=== PATIENT | female | born 1970 | race Caucasian/White ===

== ENCOUNTER 2021-09-03 10:26 | Day surgery (SDC) | payer MEDICARE, MEDICAID ==
[~2021-09-03] VITALS: Ht 167.6 cm; Wt 102.2 kg
[~2021-09-03 10:26] MED LIST: ALBU18HF2 INH; ATI1T PO; CALC-1200 PO; COL100C PO; IBUP-1984 PO; IVER3TAB2 PO; LEVE250T PO; LIDO700A47 TP; NICO-668 MM; PANT40TA54 PO; PROP60TA19 PO; QUET200T31 PO; TOP25T PO; TRAZ150T78 PO; VENL150T3 PO
[2021-09-03 10:42] VITALS: BP 160/107
[2021-09-03] MEDS ORDERED: PROPANOLOL (10:49)
[2021-09-03] MEDS ORDERED: BACL20TA PO (10:50)
[2021-09-03] MEDS ORDERED: QUET-1 PO (10:50)
[2021-09-03] MEDS ORDERED: IBUP-1986 PO (10:51)
[2021-09-03] MEDS ORDERED: GABA-530 PO (10:52)
[2021-09-03] MEDS ORDERED: QUET300T20 PO (10:53)
[2021-09-03] MEDS ORDERED: MIDAZolam 1 MG/ML 5ML VIAL ONE (10:55)
[2021-09-03] MEDS ORDERED: fentaNYL/PF 50MCG/1 ML 2ML syringe ONE (10:55)
[2021-09-03] MEDS ORDERED: HYDR-3686 PO (10:56)
[2021-09-03] MEDS ORDERED: LACT10SO3 PO (10:57)
[2021-09-03 11:58] VITALS: BP 141/49
[2021-09-03 12:08] VITALS: BP 139/93
[2021-09-03 12:18] VITALS: BP 138/99
== END 2021-09-03 12:40 | disposition home or self-care (01) ==
LOC: GI LAB 10:26
PROVIDERS: ATTEND Internal Medicine Gastroenterology
DX: Z12.11 Encounter for screening for malignant neoplasm of colon (principal); K64.8 Other hemorrhoids; Z72.89 Other problems related to lifestyle; F17.210 Nicotine dependence, cigarettes, uncomplicated; Z83.71 Family history of colonic polyps
CPT/HCPCS: 45380; 99153; G0500; J2250; J3010; J7040; Z7512; 88305; 88313; 99152; A4620

== ENCOUNTER 2022-11-21 11:22 | Emergency (ER) | payer MEDICARE, MEDICAID ==
[~2022-11-21] VITALS: Ht 167.6 cm; Wt 104.5 kg
[~2022-11-21 11:22] MED LIST changes: -ATI1T PO; +BACL20TA PO; -CALC-1200 PO; -COL100C PO; +GABA-530 PO; +HYDR-3686 PO; -IBUP-1984 PO; +IBUP-1986 PO; -IVER3TAB2 PO; +LACT10SO3 PO; -LEVE250T PO; -LIDO700A47 TP; -NICO-668 MM; -PROP60TA19 PO; +PROPANOLOL; +QUET-1 PO; -QUET200T31 PO; +QUET300T20 PO; -TOP25T PO; -TRAZ150T78 PO; -VENL150T3 PO
[2022-11-21 11:33] VITALS: BP 146/108
[2022-11-21] MEDS ORDERED: ketorolac trometh inj. 60 MG/2 ML VIAL IM ONE (12:00)
[2022-11-21] MEDS ORDERED: metoclopramide 10mg tablet PO ONE (12:00)
[2022-11-21] MEDS ORDERED: diphenhydrAMINE 25mg capsule PO ONE (12:00)
== END 2022-11-21 12:31 | disposition home or self-care (01) ==
LOC: ER 11:23
DX: G43.909 Migraine, unspecified, not intractable, without status migrainosus (principal); B34.9 Viral infection, unspecified; I10 Essential (primary) hypertension; F17.200 Nicotine dependence, unspecified, uncomplicated; Z91.040 Latex allergy status; Z88.8 Allergy status to other drugs, medicaments and biological substances; Z56.0 Unemployment, unspecified; Z59.00 Homelessness unspecified
CPT/HCPCS: 96372; 99283; J1885; Q0163

== ENCOUNTER 2022-11-29 15:29 | Emergency (ER) | payer MEDICARE, MEDICAID ==
[~2022-11-29] VITALS: Ht 167.6 cm; Wt 104.5 kg
[2022-11-29 16:03] VITALS: BP 165/110
[2022-11-29] MEDS ORDERED: ketorolac trometh. 30mg/ml inj. IM ONE (18:40)
[2022-11-29] MEDS ORDERED: amox tr/potassium clavulanate 875/125mg TAB PO ONE (19:10)
[2022-11-29] MEDS ORDERED: AMOX-117 PO (19:13)
== END 2022-11-29 19:42 | disposition home or self-care (01) ==
LOC: ER 15:30
DX: J32.9 Chronic sinusitis, unspecified (principal)
CPT/HCPCS: 70450; 70486; 96372; 99285; J1885

== ENCOUNTER 2023-11-03 11:28 | Emergency (ER) | payer MEDICARE, MEDICAID ==
[~2023-11-03] VITALS: Ht 172.7 cm; Wt 101.8 kg
[2023-11-03 11:39] VITALS: TEMP 97.8
[2023-11-03 12:45] VITALS: BP 151/98; PULSE 81; O2SAT 94
[2023-11-03] MEDS ORDERED: FLUT16SP2 BOTHNARES (12:51)
[2023-11-03] MEDS ORDERED: AMOX-117 PO (12:51)
[2023-11-03] MEDS ORDERED: PSEU120T56 PO (12:51)
[2023-11-03] MEDS: ketorolac tromethamine 15mg/ml inj. IM ONE (13:04)
[2023-11-03 13:15] VITALS: RESP 12
== END 2023-11-03 13:20 | disposition home or self-care (01) ==
LOC: ER 11:30
DX: J32.9 Chronic sinusitis, unspecified (principal); G43.909 Migraine, unspecified, not intractable, without status migrainosus; I10 Essential (primary) hypertension; Z56.0 Unemployment, unspecified; Z59.00 Homelessness unspecified; Z72.89 Other problems related to lifestyle; Z91.040 Latex allergy status; Z88.8 Allergy status to other drugs, medicaments and biological substances; Z79.899 Other long term (current) drug therapy; Z79.1 Long term (current) use of non-steroidal anti-inflammatories (NSAID)
CPT/HCPCS: 71045; 96372; 99283; J1885; 99284

== ENCOUNTER 2023-11-18 09:22 | Emergency (ER) | payer MEDICARE, MEDICAID ==
[~2023-11-18] VITALS: Ht 167.6 cm; Wt 98.8 kg
[~2023-11-18 09:22] MED LIST changes: +AMOX-117 PO; +FLUT16SP2 BOTHNARES; +PSEU120T56 PO
[2023-11-18 09:49] VITALS: BP 155/101; PULSE 81; RESP 16; TEMP 97.6; O2SAT 97
== END 2023-11-18 13:34 | disposition left against medical advice (07) ==
LOC: ER 09:22
DX: J32.9 Chronic sinusitis, unspecified (principal); Z53.21 Procedure and treatment not carried out due to patient leaving prior to being seen by health care provider

== ENCOUNTER 2023-11-19 08:41 | Emergency (ER) | payer MEDICARE, MEDICAID ==
[~2023-11-19] VITALS: Ht 167.6 cm; Wt 98.2 kg
[2023-11-19 08:46] VITALS: BP 184/108; PULSE 83; RESP 18; O2SAT 98
[2023-11-19] MEDS: ketorolac tromethamine 15mg/ml inj. IM ONE (11:19)
[2023-11-19 11:39] VITALS: TEMP 97.6
== END 2023-11-19 11:42 | disposition home or self-care (01) ==
LOC: ER 08:42
DX: J32.0 Chronic maxillary sinusitis (principal); J34.89 Other specified disorders of nose and nasal sinuses; I10 Essential (primary) hypertension; F17.200 Nicotine dependence, unspecified, uncomplicated; Z91.040 Latex allergy status; Z88.8 Allergy status to other drugs, medicaments and biological substances
CPT/HCPCS: 70486; 96372; 99285; J1885

== ENCOUNTER 2024-01-28 10:31 | Emergency (ER) | payer MEDICARE, MEDICAID ==
[~2024-01-28] VITALS: Ht 167.6 cm; Wt 92.1 kg
[2024-01-28 10:38] VITALS: BP 127/92; PULSE 94; RESP 16; TEMP 98; O2SAT 96
[2024-01-28] MEDS: ondansetron 4mg rapidly disintigrating tab PO ONE (11:54)
[2024-01-28] MEDS: ketorolac trometh. 30mg/ml inj. IM ONE (11:58)
[2024-01-28] MEDS: LIDOcaine 1% 30ml preserv. free vial SQ STA (12:05)
[2024-01-28] MEDS: TETanus/Pertussis (Acell)/Diphther VAC/PF (Tdap-Adult) 0.5ml syringe IMVAC ONE (12:59)
== END 2024-01-28 13:01 | disposition home or self-care (01) ==
LOC: ER 10:32
DX: S61.213A Laceration without foreign body of left middle finger without damage to nail, initial encounter (principal); I10 Essential (primary) hypertension; G43.909 Migraine, unspecified, not intractable, without status migrainosus; Z91.040 Latex allergy status; Z88.8 Allergy status to other drugs, medicaments and biological substances; Z79.899 Other long term (current) drug therapy; Z79.2 Long term (current) use of antibiotics; Z79.1 Long term (current) use of non-steroidal anti-inflammatories (NSAID); W23.0XXA Caught, crushed, jammed, or pinched between moving objects, initial encounter; Y93.89 Activity, other specified; Y92.89 Other specified places as the place of occurrence of the external cause; Y99.8 Other external cause status
CPT/HCPCS: 12002; 73140; 96372; 99283; A6222; A6258; J1885; J7030

== ENCOUNTER 2024-02-04 14:49 | Emergency (ER) | payer MEDICARE, MEDICAID | END 2024-02-04 15:50 | disposition left against medical advice (07) | LOC: ER 14:50 | DX: Z48.00 Encounter for change or removal of nonsurgical wound dressing (principal); Z53.21 Procedure and treatment not carried out due to patient leaving prior to being seen by health care provider ==

== ENCOUNTER 2024-02-05 08:30 | Emergency (ER) | payer MEDICARE, MEDICAID ==
[~2024-02-05] VITALS: Ht 167.6 cm; Wt 87.9 kg
[2024-02-05 08:31] VITALS: BP 142/73; PULSE 91; RESP 16; TEMP 98; O2SAT 95
== END 2024-02-05 09:01 | disposition home or self-care (01) ==
LOC: ER 08:31
DX: S61.213D Laceration without foreign body of left middle finger without damage to nail, subsequent encounter (principal); G43.909 Migraine, unspecified, not intractable, without status migrainosus; I10 Essential (primary) hypertension; Z59.00 Homelessness unspecified; Z56.0 Unemployment, unspecified; Z79.899 Other long term (current) drug therapy; Z88.8 Allergy status to other drugs, medicaments and biological substances; Z91.040 Latex allergy status; Z79.2 Long term (current) use of antibiotics; Z79.1 Long term (current) use of non-steroidal anti-inflammatories (NSAID); Z79.51 Long term (current) use of inhaled steroids; X58.XXXD Exposure to other specified factors, subsequent encounter
CPT/HCPCS: 99281

== ENCOUNTER 2024-04-30 09:44 | Emergency (ER) | payer MEDICARE, MEDICAID ==
[~2024-04-30] VITALS: Ht 167.6 cm; Wt 84.5 kg
[2024-04-30 09:46] VITALS: BP 116/80; PULSE 100; TEMP 97.5; O2SAT 99
[2024-04-30 10:18] VITALS: RESP 16
[2024-04-30] MEDS: ketorolac trometh 30MG/ML vial 30 MG/ML VIAL IM ONE (10:18)
[2024-04-30] MEDS ORDERED: AMOX-117 PO (10:39)
[2024-04-30] MEDS ORDERED: hydrOXYzine 25 MG tablet PO ONE (10:50)
== END 2024-04-30 10:47 | disposition home or self-care (01) ==
LOC: ER 09:45
DX: H66.91 Otitis media, unspecified, right ear (principal); I10 Essential (primary) hypertension; G43.909 Migraine, unspecified, not intractable, without status migrainosus; Z91.040 Latex allergy status; Z88.8 Allergy status to other drugs, medicaments and biological substances; Z88.6 Allergy status to analgesic agent; Z88.1 Allergy status to other antibiotic agents
CPT/HCPCS: 96372; 99283; J1885

== ENCOUNTER 2024-11-04 08:26 | Emergency (ER) | payer MEDICARE, MEDICAID ==
[~2024-11-04] VITALS: Ht 167.6 cm; Wt 77.5 kg
[~2024-11-04 08:26] MED LIST changes: +LACT-373 PO; -LACT10SO3 PO
[2024-11-04 08:53] LABS: BILIRUBIN,URINE SMALL (Neg); CLARITY,URINE CLEAR (Clear); COLOR,URINE YELLOW (Yellow); GLUCOSE, URINE NEGATIVE (Neg); KETONES,URINE NEGATIVE (Neg); LEUKOCYTE ESTERASE ,URINE NEGATIVE (Neg); NITRITES, URINE NEGATIVE (Neg); OCCULT BLOOD,URINE NEGATIVE (Neg); PROTEIN,URINE TRACE mg/dl (Neg); UROBILINOGEN,URINE 0.2 E.U/dL (0.2-1.0)
[2024-11-04 08:56] LABS: BASOPHILS # (AUTO) 0.1 X10'3 (0-0.2); BASOPHILS % (AUTO) 1.1 % (0-1); EOSINOPHILS # (AUTO) 0.2 X10'3 (0-0.9); EOSINOPHILS % (AUTO) 2.2 % (0-6); HEMATOCRIT 42.4 % (35.0-45.0); HEMOGLOBIN 14.3 g/dl (12.0-16.0); LYMPHOCYTES # (AUTO) 2.8 X10'3 (1.1-4.8); LYMPHOCYTES % (AUTO) 37.7 % (21-51); MEAN CORPUSCULAR HEMOGLOBIN 29.1 PG (27.0-31.0); MEAN CORPUSCULAR HGB CONC 33.6 g/dL (33.0-36.5); MEAN CORPUSCULAR VOLUME 86.7 FL (78-98); MEAN PLATELET VOLUME 6.8 FL (7.4-10.4); MONOCYTES # (AUTO) 0.4 X10'3 (0-0.9); MONOCYTES % (AUTO) 5.9 % (2-12); NEUTROPHILS % (AUTO) 53.1 % (42-75); PLATELET COUNT 320 X10'3 (140-440); RED CELL DISTRIBUTION WIDTH 12.6 % (11.5-14.5); WHITE BLOOD COUNT 7.5 X10'3 (4.5-11.0)
[2024-11-04 09:07] LABS: ALANINE AMINOTRANSFERASE 23 U/L (12-78); ALBUMIN 4.1 G/DL (3.4-5.0); ALBUMIN/GLOBULIN RATIO 1.2 (1.1-1.5); ALKALINE PHOSPHATASE 79 IU/L (46-116); ANION GAP 8 (8-16); ASPARTATE AMINO TRANSFERASE 13 U/L (10-37); BILIRUBIN,TOTAL 0.3 MG/DL (0.1-1.0); BLOOD UREA NITROGEN 12 MG/DL (7-18); BUN/CREATININE RATIO 18.2 (10.0-20.0); CHLORIDE 104 MMOL/L (99-107); CREATININE 0.66 MG/DL (0.40-0.90); GLUCOSE 84 MG/DL (70-104); LIPASE 41 U/L (16-77); POTASSIUM 3.7 MMOL/L (3.5-5.1); SODIUM 142 MMOL/L (135-145); TOTAL PROTEIN 7.6 G/DL (6.4-8.2); eCRCL 92 ML/MIN; eGFR > 90 ML/MIN
--- NOTE | 2024-11-04 09:14 | Physician Documentation ---
History of Present Illness Chief Complaint: Abdominal Pain w/vomiting Stated Complaint: MULTIPLE MED COMPLAINTS Time Seen by MD: 08:43 Primary Medical Doctor: Logan BILLY 53 yr old female presents to the emergency department reporting that she has been having issues with daily abdominal pain, occasional vomiting, and chronic diarrhea. She notes a history of alcoholism for which she has been sober for the last 3.5. Hx of COPD and asthma with current tobacco use. She describes a history of attacks on her stomach that began over a year ago but now the diarrhea is happening daily and occasionally she has violent vomiting episodes. The pain she reports as feeling like contractions or spasms in her stomach. She describes it in the upper abdomen, radiates around to the back, and sometimes is under the right ribs. She notes that she was seen at [facility] earlier this week and did have scans done. She believes that this included an ultrasound. She also reports that she has been having headaches for the last 48 hours, which is a new symptom for her. She denies black or bloody stools. She reports no fevers. She has discussed these issues with the primary care provider, and has had stool studies-reportedly normal. She has not had any abdominal surgeries except for repair of pyloric stenosis done when she was a 6-week-old. Of note, the patient is on semaglutide for weight loss, but notes that her symptoms predate the initiation of this. She is currently on 2.4 mg weekly and has lost almost 80 lb. Other current medications include promethazine as needed for nausea, lisinopril, trazodone, metformin, vitamin-D, pantoprazole, Tylenol, baclofen, and an inhaler. Medication Reconciliation Allergies: Coded Allergies: latex (Unverified Allergy, Unknown, 04/30/24) sumatriptan (Unverified Allergy, Unknown, 04/30/24) Scheduled Albuterol Sulfate (Ventolin Hfa), 2 PUFFS INH Q4HPRN Amox Tr/Potassium Clavulanate (Augmentin 875-125 Tablet), 1 TAB PO Q12H Baclofen (Baclofen), 1 TABLET PO TID, (Reported) Fluticasone Propionate (Flonase), 2 SPRAYS BOTHNARES DAILY Gabapentin (Gabapentin), 1 CAP PO Q12, (Reported) Hydroxyzine Hcl* (Atarax*), 2 TAB PO Q12H, (Reported) Ibuprofen (Ibuprofen), 1 TAB PO Q8H, (Reported) Lactulose (Lactulose), 30 ML PO QAM, (Reported) Loperamide Hcl (Loperamide), 2 CAP PO Q6H Pantoprazole Sodium (Pantoprazole Sodium), 40 MG PO BKF Pseudoephedrine HCl (Sudafed 12 Hour), 1 TAB PO Q12H Quetiapine Fumarate (Seroquel), 1 TAB PO DAILY, (Reported) Quetiapine Fumarate (Quetiapine Fumarate), 1 TAB PO HS, (Reported) [Propanolol], 60 MG DAILY, (Reported) Past Medical History Past Medical History: Headache, Migraine, Hypertension, *PSYCH* Past Surgical History: noncontributory Alcohol Use: Sober Lives In: Homeless Occupation: unemployed Past Social History: Patient has history of illicit drug 18 months clean Review of Systems ROS As stated above in the HPI, otherwise all systems are reviewed and negative. Physical Exam Vital Signs: Temperature: 97.7, Source: Temporal, Heart Rate: 87, Respiratory Rate: 16, BP: 117/66, Pulse Oximetry: 97, Weight: 77.550 Oxygen Flow Rate: 0 Physical Exam General: Alert, no apparent distress. Neck: Full range of motion. Respiratory: Lungs clear, no respiratory distress. Chest: No accessory muscle use. Cardiovascular: Regular rate and rhythm, no murmurs. Gastrointestinal: Soft, mildly tender throughout without guarding or rebound, nondistended. Bowels sounds present. Extremities: Normal range of motion, no deformity. Neurologic: Oriented x4. Psychiatric: Normal mood and affect. Skin: Normal color, warm and dry. No edema, no ecchymosis. Progress Progress Note Records obtained from patient's visit with PCP Dr. Hameed at [facility]. However, CT scan results not available. Results/Orders Results/Orders Orders - LASHELL HERNANDEZ [employer] Normal Saline 1000ml (Sodium Chloride 10 (11/04/24 08:50) Completed Orders - LASHELL HERNANDEZ [employer] Ondansetron Inj. (Zofran 4mg/2ml Vial) (11/04/24 08:50) Ketorolac Trometh 15mg/Ml Vial (Toradol (11/04/24 08:50) Vital Signs 11/04/24 11/04/24 08:31 08:50 Temp 97.7 97.7 Pulse 94 87 Resp 18 16 B/P (MAP) 129/83 117/66 (83) Pulse Ox 99 97 O2 Flow Rate 0 0 Laboratory Tests Test 11/04/24 08:34 11/04/24 08:43 Urine Comment White Blood Count 7.5 Red Blood Count 4.90 Hemoglobin 14.3 Hematocrit 42.4 Mean Corpuscular Volume 86.7 Mean Corpuscular Hemoglobin 29.1 Mean Corpuscular Hemoglobin Concent 33.6 Red Cell Distribution Width 12.6 Platelet Count 320 Mean Platelet Volume 6.8 L Neutrophils (%) (Auto) 53.1 Lymphocytes (%) (Auto) 37.7 Monocytes (%) (Auto) 5.9 Eosinophils (%) (Auto) 2.2 Basophils (%) (Auto) 1.1 H Neutrophils # (Auto) 4.0 Lymphocytes # (Auto) 2.8 Monocytes # (Auto) 0.4 Eosinophils # (Auto) 0.2 Basophils # (Auto) 0.1 CBC Comment Sodium Level 142 Potassium Level 3.7 Chloride Level 104 Carbon Dioxide Level 30.0 Anion Gap 8 Blood Urea Nitrogen 12 Creatinine 0.66 Estimated GFR/1.73 m2 > 90 BUN/Creatinine Ratio 18.2 Glucose Level 84 Calcium Level 9.0 Total Bilirubin 0.3 Aspartate Amino Transf (AST/SGOT) 13 Alanine Aminotransferase (ALT/SGPT) 23 Alkaline Phosphatase 79 Total Protein 7.6 Albumin 4.1 Globulin 3.5 Albumin/Globulin Ratio 1.2 Lipase 41 Chemistry Comments Medical Decision Making Additional Comments This is a 53-year-old female with report of chronic abdominal issues for over the last year. She was just seen at [facility] earlier this week, at which point she had labs and imaging done, which she reports as normal. These results will be requested. At this time, the plan is to obtain lab work, hydrate the patient with 1 L of normal saline, give her Toradol 15 mg for pain, and give her intravenous ondansetron 4 mg IV for nausea. Labs reviewed and unrem arkable including normal WBC count, normal lipase. Recommend patient f/u with PCP. Departure Time of Disposition: 10:17 Disposition: 01 HOME / SELF CARE / HOMELESS Impression: Primary Impression: Chronic abdominal pain Additional Impression: Diarrhea Condition: Stable Discharge Instructions: Chronic Diarrhea, Irritable Bowel Syndrome, Adult Additional Instructions: Please continue to see your PCP to pursue workup of your chronic abdominal pain and diarrhea. Normal labs today. You were hydrated and given toradol and nausea medication (ondansetron). Consider trying a low FODMAP diet and occasional loperamide for your diarrhea. Your sypmptoms may represent IBS (irritable bowel disease). You may benefit from a referral to a dietitian and multi share program coordinator. Good luck! Referrals: NO PRIMARY CARE PROVIDER (PCP) Prescriptions Loperamide Hcl (Loperamide) 2 Mg Capsule 2 CAP PO Q6H for loose stool for 5 Days, #40 CAP 0 Refills Prov: LASHELL HERNANDEZ NP 11/04/24 Education Educated: Patient Educated regarding: diagnosis, treatment, prognosis, need for follow up Signature Scribe Signature: no scribe Attestation: The note accurately reflects work and decisions made by me.Lashell Madrid NP 11/04/24 09:14 LASHELL HERNANDEZ NP Nov 04, 2024 09:14
[2024-11-04 09:27] LABS: UA COLLECTION TYPE CLN CATCH MIDSTREAM
[2024-11-04 09:28] LABS: SQUAMOUS EPITHELIAL CELL,UR FEW /LPF (FEW)
[2024-11-04 09:29] LABS: MUCUS STRANDS MODERATE /LPF (Neg)
[2024-11-04 09:30] LABS: RBC,URINE 0-2 /HPF (0-2)
[2024-11-04 09:31] LABS: BACTERIA,URINE FEW /HPF (Neg); WBC,URINE 0-4 /HPF (0-4)
[2024-11-04] MEDS: normal saline 1000ml 1,000 ML IV ONE (09:37)
[2024-11-04] MEDS: ondansetron/PF 4mg/2ml inj IV ONE (09:38)
[2024-11-04] MEDS: ketorolac trometh 15mg/ml vial 15 MG/ML ML IV ONE (09:38)
[2024-11-04 09:40] LABS: CAL OXALATE CRYSTALS 1+ /HPF (NEGATIVE)
[2024-11-04] MEDS ORDERED: LOPE2CAP PO (10:19)
[2024-11-04 10:33] VITALS: BP 128/78; PULSE 80; RESP 12; TEMP 97.7; O2SAT 99
== END 2024-11-04 10:31 | disposition home or self-care (01) ==
LOC: ER 08:27
DX: G89.29 Other chronic pain (principal); R10.84 Generalized abdominal pain; R19.7 Diarrhea, unspecified; M54.9 Dorsalgia, unspecified; G43.909 Migraine, unspecified, not intractable, without status migrainosus; I10 Essential (primary) hypertension; Z88.8 Allergy status to other drugs, medicaments and biological substances; Z79.899 Other long term (current) drug therapy; Z79.1 Long term (current) use of non-steroidal anti-inflammatories (NSAID); Z56.0 Unemployment, unspecified; Z59.00 Homelessness unspecified
CPT/HCPCS: 36415; 80053; 81001; 83690; 85025; 96361; 96374; 96375; 99284; J1885; J2405; J7030

== ENCOUNTER 2024-12-01 10:43 | Emergency (ER) | payer MEDICARE, MEDICAID ==
[~2024-12-01] VITALS: Ht 167.6 cm; Wt 74.8 kg
[~2024-12-01 10:43] MED LIST changes: +LOPE2CAP PO
[2024-12-01 10:55] VITALS: BP 128/83; PULSE 95; RESP 18; TEMP 97.6; O2SAT 98
== END 2024-12-01 15:13 | disposition left against medical advice (07) ==
LOC: ER 10:43
DX: R10.9 Unspecified abdominal pain (principal); Z91.040 Latex allergy status; Z88.8 Allergy status to other drugs, medicaments and biological substances; Z53.21 Procedure and treatment not carried out due to patient leaving prior to being seen by health care provider

== ENCOUNTER 2024-12-27 11:26 | Emergency (ER) | payer MEDICARE, MEDICAID ==
[~2024-12-27] VITALS: Ht 167.6 cm; Wt 63.1 kg
[2024-12-27 12:04] LABS: BASOPHILS # (AUTO) 0.1 X10'3 (0-0.2); BASOPHILS % (AUTO) 1.4 % (0-1); EOSINOPHILS # (AUTO) 0.2 X10'3 (0-0.9); EOSINOPHILS % (AUTO) 2.6 % (0-6); HEMATOCRIT 39.2 % (35.0-45.0); HEMOGLOBIN 13.4 g/dl (12.0-16.0); LYMPHOCYTES % (AUTO) 46.5 % (21-51); MEAN CORPUSCULAR HEMOGLOBIN 28.7 PG (27.0-31.0); MEAN CORPUSCULAR HGB CONC 34.1 g/dL (33.0-36.5); MEAN CORPUSCULAR VOLUME 84.1 FL (78-98); MEAN PLATELET VOLUME 6.9 FL (7.4-10.4); MONOCYTES # (AUTO) 0.3 X10'3 (0-0.9); MONOCYTES % (AUTO) 5.2 % (2-12); NEUTROPHILS # (AUTO) 2.9 X10'3 (1.8-7.7); NEUTROPHILS % (AUTO) 44.3 % (42-75); PLATELET COUNT 305 X10'3 (140-440); RED BLOOD COUNT 4.66 X10'6 (4.20-5.60); WHITE BLOOD COUNT 6.5 X10'3 (4.5-11.0)
--- NOTE | 2024-12-27 12:11 | Physician Documentation ---
History of Present Illness General Chief Complaint: Abdominal Pain w/vomiting Stated Complaint: GALLSTONES/VOMITING Time Seen by MD: 12:00 Primary Medical Doctor: Logan History of Present Illness Initial Comments The patient is a 54-year-old female who has chronic abdominal pain that is currently being worked up by a plastic sheets supervisor. She has Bentyl at home and this normally helps her but she reports that today it failed to relieve her pain. She does have a gallstone but it is nonobstructive. She is also being worked up for inflammatory bowel disease. She comes here today for some relief prior to her follow-up with her PCP and plastic sheets supervisor. She has had some vomiting without blood. Medication Reconciliation Allergies: Coded Allergies: latex (Unverified Allergy, Unknown, 12/01/24) sumatriptan (Unverified Allergy, Unknown, 12/01/24) Scheduled Albuterol Sulfate (Ventolin Hfa), 2 PUFFS INH Q4HPRN Amox Tr/Potassium Clavulanate (Augmentin 875-125 Tablet), 1 TAB PO Q12H Baclofen (Baclofen), 1 TABLET PO TID, (Reported) Fluticasone Propionate (Flonase), 2 SPRAYS BOTHNARES DAILY Gabapentin (Gabapentin), 1 CAP PO Q12, (Reported) Hydroxyzine Hcl* (Atarax*), 2 TAB PO Q12H, (Reported) Ibuprofen (Ibuprofen), 1 TAB PO Q8H, (Reported) Lactulose (Lactulose), 30 ML PO QAM, (Reported) Loperamide Hcl (Loperamide), 2 CAP PO Q6H Pantoprazole Sodium (Pantoprazole Sodium), 40 MG PO BKF Pseudoephedrine HCl (Sudafed 12 Hour), 1 TAB PO Q12H Quetiapine Fumarate (Seroquel), 1 TAB PO DAILY, (Reported) Quetiapine Fumarate (Quetiapine Fumarate), 1 TAB PO HS, (Reported) [Propanolol], 60 MG DAILY, (Reported) Past Medical History Past Medical History: Headache, Migraine, Hypertension, *PSYCH* Past Surgical History: noncontributory Alcohol Use: Sober Lives In: Homeless Occupation: unemployed Past Social History: Patient has history of illicit drug 18 months clean Review of Systems ROS Constitutional: Denies chills, fatigue, fever, weight gain or weight loss. HEENT: Denies hearing loss, sinus pressure or visual changes. Respiratory: Denies cough, shortness of breath or wheezing. Cardiovascular: Denies chest pain, pain while walking (claudication), edema or palpitations. Gastrointestinal: Abdominal pain. Genitourinary: Denies painful urination (dysuria), excessive amount of urine (polyuria) or urinary frequency. Metabolic/Endocrine: Denies cold intolerance, heat intolerance, excessive thirst (polydipsia) or excessive hunger (polyphagia). Neurological: Denies dizziness, extremity numbness, extremity weakness, headac hes, seizures or tremors. Psychiatric: Denies anxiety or depression. Integumentary: Denies breast discharge, breast lump, hives, mole change(s), rash or skin lesion. Musculoskeletal: Denies back pain, joint pain, joint swelling or neck pain. Hematologic: Denies easily bleeding, easily bruises, lymphedema or issues with blood clots. Immunologic: Denies food allergies or seasonal allergies. Physical Exam Physical Exam Vital Signs: Temperature: 97.6, Source: Temporal, Heart Rate: 86, Respiratory Rate: 15, BP: 115/85, Pulse Oximetry: 100, Weight: 63.100 Physical Exam Physical Exam Vitals and nursing note reviewed. Constitutional: General: Patient is awake, alert, oriented x 4 in no acute distress and well appearing. Speech is clear and lucid. Appearance: Normal appearance. Patient is not ill-appearing, toxic-appearing or diaphoretic. HENT: Head: Normocephalic and atraumatic. Mouth/Throat: Mouth: Mucous membranes are moist. Pharynx: Oropharynx is clear. Eyes: General: No scleral icterus. Extraocular Movements: Extraocular movements intact. Pupils: Pupils are equal, round, and reactive to light. Cardiovascular: Rate and Rhythm: Normal rate and regular rhythm. Heart sounds: No murmur heard. Pulmonary: Effort: No respiratory distress. Breath sounds: No wheezing, rhonchi or rales. Abdominal: General: There is no distension. Palpations: There is no fluid wave, hepatomegaly or mass. Tenderness: There is no abdominal tenderness. There is no guarding. Musculoskeletal: General: No swelling or deformity. Skin: Coloration: Skin is not jaundiced. Findings: No erythema or rash. Neurological: Mental Status: Patient is alert. Progress Results/Orders Results/Orders Completed Orders - MILAGROS LORD MD Urinalysis, Cult If Indicated (12/27/24 11:35) Hcg, Ur Ql (12/27/24 11:35) Cbc/Diff (12/27/24 11:35) BMP (12/27/24 11:35) Lipase (12/27/24 11:35) CMP (12/27/24 11:35) Normal Saline 1000ml (Sodium Chloride 10 (12/27/24 12:10) Ketorolac Trometh 30mg/Ml Vial (Toradol (12/27/24 12:10) Ondansetron Inj. (Zofran 4mg/2ml Vial) (12/27/24 12:10) Medications Received in ER Medications (Trade) Dose Ordered Sig/Audrey Route PRN Reason Start Time Stop Time Status Last Admin Dose Admin Sodium Chloride 1,000 ml @ 1,000 mls/hr ONCE ONCE IV 12/27/24 12:10 12/27/24 13:09 DC 12/27/24 12:27 1,000 MLS/HR (Toradol inj. 30mg/ml) 15 mg ONCE ONCE IV 12/27/24 12:10 12/27/24 12:12 DC 12/27/24 12:26 15 MG (Zofran 4mg/2ml vial) 4 mg ONCE ONCE IV 12/27/24 12:10 12/27/24 12:11 DC 12/27/24 12:27 4 MG Vital Signs 12/27/24 12/27/24 12/27/24 11:31 12:29 13:10 Temp 97.6 98.2 98.2 Pulse 86 76 77 Resp 15 16 17 B/P (MAP) 115/85 121/84 (96) 146/87 (106) Pulse Ox 100 95 97 O2 Flow Rate 0 0 Laboratory Tests Test 12/27/24 11:44 12/27/24 12:15 White Blood Count 6.5 Red Blood Count 4.66 Hemoglobin 13.4 Hematocrit 39.2 Mean Corpuscular Volume 84.1 Mean Corpuscular Hemoglobin 28.7 Mean Corpuscular Hemoglobin Concent 34.1 Red Cell Distribution Width 12.0 Platelet Count 305 Mean Platelet Volume 6.9 L Neutrophils (%) (Auto) 44.3 Lymphocytes (%) (Auto) 46.5 Monocytes (%) (Auto) 5.2 Eosinophils (%) (Auto) 2.6 Basophils (%) (Auto) 1.4 H Neutrophils # (Auto) 2.9 Lymphocytes # (Auto) 3.0 Monocytes # (Auto) 0.3 Eosinophils # (Auto) 0.2 Basophils # (Auto) 0.1 CBC Comment Sodium Level 139 Potassium Level 4.0 Chloride Level 102 Carbon Dioxide Level 27.7 Anion Gap 9 Blood Urea Nitrogen 7 Creatinine 0.59 Estimated GFR/1.73 m2 > 90 BUN/Creatinine Ratio 11.9 Glucose Level 94 Calcium Level 8.9 Total Bilirubin 0.3 Aspartate Amino Transf (AST/SGOT) 14 Alanine Aminotransferase (ALT/SGPT) 23 Alkaline Phosphatase 88 Total Protein 7.2 Albumin 3.9 Globulin 3.3 Albumin/Globulin Ratio 1.2 Lipase 38 Chemistry Comments Urine Specimen Description Cln catch midstream Urine Color Yellow Urine Clarity Clear Urine pH 6.0 Urine Specific [place] 1.010 Urine Protein Negative Urine Glucose (UA) Negative Urine Ketones Negative Urine Occult Blood Negative Urine Nitrite Negative Urine Bilirubin Negative Urine Urobilinogen 0.2 Urine Leukocyte Esterase Negative Urine Culture Indicated Not ind Volume Urine Centrifuged 10 ml Urine HCG, Qualitative Negative Urine Comment Medical Decision Making Findings This 54-year-old female presents with the abdominal pain. I am hydrating her and giving her Toradol and Zofran. 12/27/2024, 1332: Patient feels better and would like to go home. Departure Disposition: HOME / SELF CARE / HOMELESS Impression: Primary Impression: Abdominal pain Condition: Improved Discharge Instructions: Viral Gastroenteritis, Adult, [id number], Abdominal Pain (Nonspecific) Additional Instructions: Please follow-up with your doctors as per our conversation. Referrals: NO PRIMARY CARE PROVIDER (PCP) Signature Scribe Signature: . Attestation: . MILAGROS LORD MD Dec 27, 2024 12:11
[2024-12-27 12:19] LABS: ALANINE AMINOTRANSFERASE 23 U/L (12-78); ALBUMIN 3.9 G/DL (3.4-5.0); ALBUMIN/GLOBULIN RATIO 1.2 (1.1-1.5); ALKALINE PHOSPHATASE 88 IU/L (46-116); ANION GAP 9 (8-16); ASPARTATE AMINO TRANSFERASE 14 U/L (10-37); BILIRUBIN,TOTAL 0.3 MG/DL (0.1-1.0); BLOOD UREA NITROGEN 7 MG/DL (7-18); BUN/CREATININE RATIO 11.9 (10.0-20.0); CALCIUM 8.9 MG/DL (8.5-10.1); CHLORIDE 102 MMOL/L (99-107); CREATININE 0.59 MG/DL (0.40-0.90); GLUCOSE 94 MG/DL (70-104); LIPASE 38 U/L (16-77); SODIUM 139 MMOL/L (135-145); TOTAL CARBON DIOXIDE 27.7 MMOL/L (24-32); TOTAL PROTEIN 7.2 G/DL (6.4-8.2); eCRCL 102 ML/MIN; eGFR > 90 ML/MIN
[2024-12-27] MEDS: ketorolac trometh 30MG/ML vial 30 MG/ML VIAL IV ONE (12:26)
[2024-12-27] MEDS: normal saline 1000ml 1,000 ML IV ONE (12:27)
[2024-12-27] MEDS: ondansetron/PF 4mg/2ml inj IV ONE (12:27)
[2024-12-27 12:37] LABS: BILIRUBIN,URINE NEGATIVE (Neg); CLARITY,URINE CLEAR (Clear); COLOR,URINE YELLOW (Yellow); GLUCOSE, URINE NEGATIVE (Neg); KETONES,URINE NEGATIVE (Neg); LEUKOCYTE ESTERASE ,URINE NEGATIVE (Neg); NITRITES, URINE NEGATIVE (Neg); OCCULT BLOOD,URINE NEGATIVE (Neg); PROTEIN,URINE NEGATIVE (Neg); UROBILINOGEN,URINE 0.2 E.U/dL (0.2-1.0)
[2024-12-27 12:39] LABS: URINE HCG NEGATIVE (NEG)
[2024-12-27 12:50] LABS: UA COLLECTION TYPE CLN CATCH MIDSTREAM
[2024-12-27 13:36] VITALS: BP 138/80; PULSE 79; RESP 14; TEMP 97.8; O2SAT 2
== END 2024-12-27 14:05 | disposition home or self-care (01) ==
LOC: ER 11:27
DX: R10.9 Unspecified abdominal pain (principal); I10 Essential (primary) hypertension; G43.909 Migraine, unspecified, not intractable, without status migrainosus; F10.90 Alcohol use, unspecified, uncomplicated; Z88.8 Allergy status to other drugs, medicaments and biological substances; Y90.9 Presence of alcohol in blood, level not specified
CPT/HCPCS: 36415; 80053; 81003; 81025; 83690; 85025; 96361; 96374; 96375; 99284; J1885; J2405; J7030

== ENCOUNTER 2025-01-17 10:43 | Emergency (ER) | payer MEDICARE, MEDICAID ==
[~2025-01-17] VITALS: Ht 167.6 cm; Wt 74.1 kg
[2025-01-17 10:50] VITALS: BP 121/76; PULSE 86; RESP 18; TEMP 97.8; O2SAT 100
== END 2025-01-17 14:44 | disposition left against medical advice (07) ==
LOC: ER 10:43
DX: G43.909 Migraine, unspecified, not intractable, without status migrainosus (principal); Z91.040 Latex allergy status; Z88.8 Allergy status to other drugs, medicaments and biological substances; Z53.21 Procedure and treatment not carried out due to patient leaving prior to being seen by health care provider

== ENCOUNTER 2025-02-24 14:36 | Outpatient (CLI) | payer MEDICARE, MEDICAID ==
--- NOTE | 2025-02-24 14:29 | RADIOLOGY REPORT ---
MRI cervical spine HISTORY: CERVICALGIA TECHNIQUE: MR was performed with a surface coil at 1.5 T magnet. Sagittal, axial and coronal T1 and T 2-weighted images were obtained. FINDINGS: Cervical vertebral bodies normal in height signal intensity and alignment C2-3 no narrowing of the central canal and neural foramina C3-4 loss of disc height and signal intensity. 2-3 mm anterolisthesis due to degenerative facet joint disease. Effacement of the thecal sac and narrowing of the neural foramina by bulging disc and oste ophytes C4-5 loss of disc height and signal intensity. Effacement of the thecal sac by bulging disc and osteo phytes C5-6 loss of disc height and signal intensity. Effacement of the thecal sac and narrowing of the neur al foramina by bulging disc and osteophytes C6-7 loss of disc height and signal intensity. Effacement of the thecal sac C7-T1 no narrowing of the central canal and neural foramina Cord normal in size and signal intensity IMPRESSION: Effacement of the thecal sac without cord or nerve root compression at C3-C4 C4-C5 C5-C6 and C6-C7. N o evidence of cord atrophy or myelomalacia Foraminal narrowing by osteophytes at C3-C4, and C5-C6
== END 2025-02-24 23:59 | disposition home or self-care (01) ==
LOC: MRI02 14:36
PROVIDERS: ATTEND Family Medicine
DX: M47.812 Spondylosis without myelopathy or radiculopathy, cervical region (principal); M50.322 Other cervical disc degeneration at C5-C6 level; M48.02 Spinal stenosis, cervical region; M43.12 Spondylolisthesis, cervical region
CPT/HCPCS: 72141